=== PATIENT | female | born 2000 | race African-American/Black ===

== ENCOUNTER 2022-12-08 16:55 | Emergency (ER) | payer MEDICAID ==
[~2022-12-08] VITALS: Ht 170.2 cm; Wt 82.0 kg
[2022-12-08] MEDS ORDERED: IBUPROFEN 600MG TABLET PO ONE (18:45)
[2022-12-08 19:21] LABS: CLARITY URINE TURBID (CLEAR); COLOR URINE ORANGE (YELLOW); KETONES URINE TRACE (NEGATIVE); LEUKOCYTE ESTERASE URINE 3+ (NEGATIVE); NITRITE URINE POSITIVE (NEGATIVE); OCCULT BLOOD URINE 3+ (NEGATIVE); PROTEIN URINE 2+ (NEGATIVE)
[2022-12-08] MEDS ORDERED: CEPH500C2 MT (19:39)
[2022-12-08 19:42] VITALS: BP 136/98
[2022-12-08] MEDS ORDERED: CEPHALEXIN 250MG CAPSULE PO ONE (19:45)
== END 2022-12-08 19:55 | disposition home or self-care (01) ==
LOC: ER 17:23
DX: N39.0 Urinary tract infection, site not specified (principal)
CPT/HCPCS: 81003; 87077; 87186; 99283